=== PATIENT | male | born 1945 | race Caucasian/White ===

== ENCOUNTER → 2018-02-10 | Outpatient (CLI) | payer MEDICARE ==
--- NOTE | 2018-02-10 13:14 | XR ---
EXAMINATION TYPE: XR finger LT DATE OF EXAM: 02/10/2018 COMPARISON: NONE HISTORY: Palpable lump TECHNIQUE: Three views are submitted. FINDINGS: The osseous structures are intact. Along the volar surface of the middle phalanx there is a osseous extension of the from the cortex. The joint spaces are preserved and there is no acute fracture or di slocation. IMPRESSION: 1. Bony extension of the cortex along the volar surface midshaft middle phalanx left third digit. Thi s is nonspecific in appearance by x-ray could BE correlated with MRI or bone scan
== END | disposition home or self-care (01) ==
LOC: RADXRYALE 11:55
PROVIDERS: ATTEND Family Medicine
DX: S60.453A Superficial foreign body of left middle finger, initial encounter (principal)

== ENCOUNTER → 2018-11-02 | Outpatient (CLI) | payer MEDICARE ==
--- NOTE | 2018-11-02 13:20 | XR ---
Limited cervical spine HISTORY: Neck pain, torticollis 3 views of the cervical spine, no comparisons There is multilevel facet arthropathy change. Slight head tilt is noted towards the right. There is m ultilevel spondylosis. Anterolisthesis grade 1 C2-3, retrolisthesis grade 1 C4-5 and C5-6, C6-7 noted . There is loss of disc height at intervertebral levels. Vertebral body height is maintained. Prevert ebral soft tissues are normal. Odontoid view is limited. IMPRESSION: Degenerative disc disease and facet arthropathy.
== END | disposition home or self-care (01) ==
LOC: RADXRYALE 10:23
PROVIDERS: ATTEND Family Medicine
DX: M50.30 Other cervical disc degeneration, unspecified cervical region (principal); M46.92 Unspecified inflammatory spondylopathy, cervical region
CPT/HCPCS: 72040

== ENCOUNTER → 2018-11-14 | Outpatient (CLI) | payer MEDICARE ==
--- NOTE | 2018-11-14 22:09 | MR ---
EXAMINATION TYPE: MR cervical spine wo con DATE OF EXAM: 11/14/2018 COMPARISON: Radiograph 11/02/2018 HISTORY: Cervicalgia / Disc degeneration TECHNIQUE: Multiplanar, multisequence images of the cervical spine were acquired. FINDINGS: There is straightening of the normal upper and mid cervical lordosis with exaggerated lordosis center ed at C6-C7. Cervical vertebral body heights are maintained. No pathologic bone marrow signal abnorma lities. There is multilevel osteophyte formation with disc desiccation and height loss. The cervical spinal cord is of normal signal intensity. Prevertebral soft tissues are normal. Small left vertebral artery flow-void. Level by level is as follows: C2-C3: Small eccentric left posterior disc osteophyte complex impresses upon the ventral thecal sac h owever does not contact the cervical spinal cord. There is no significant spinal canal or neural fora esmer stenosis. C3-C4: Posterior disc osteophyte complex effaces the ventral thecal sac and contacts the cervical spi nal cord, flattening it ventrally. This finding, in conjunction with facet arthropathy and ligamentum flavum thickening, contribute to moderate-severe spinal canal stenosis. Additionally, uncovertebral arthropathy contributes to severe bilateral neural foraminal stenosis. C4-C5: Eccentric left posterior disc osteophyte complex effaces the ventral thecal sac and contacts t he cervical spinal cord, flattening it ventrally. This finding, in conjunction with facet arthropathy and ligamentum flavum thickening, contributing to moderate spinal canal stenosis. Additionally, unco vertebral arthropathy contributes to severe bilateral neural foraminal stenosis. C5-C6: Posterior disc osteophyte complex impresses upon the ventral thecal sac and contacts the ventr al cervical spinal cord, flattening it. This finding, in conjunction with facet arthropathy and ligam entum flavum thickening, contribute to severe spinal canal stenosis. Additionally, uncovertebral arth ropathy contributes to severe bilateral neural foraminal stenosis. C6-C7: Asymmetric left posterior disc osteophyte complex impresses upon the ventral thecal sac, conta cting the ventral cervical spinal cord. This finding, in conjunction with facet arthropathy and ligam entum flavum thickening, contributing to moderate-severe spinal canal stenosis. Additionally, uncover tebral arthropathy contributes to severe bilateral neural foraminal stenosis. C7-T1: No evidence for degenerative disc disease. No disc bulge/herniation or protrusion. No Canal stenosis. Foramina are patent bilaterally. IMPRESSION: 1. Multilevel disc degeneration with associated osteoarthritic changes, detailed above. This is great est in degree at C5-C6 where there is severe spinal canal stenosis. 2. No cervical spinal cord signal abnormalities.
== END | disposition home or self-care (01) ==
LOC: RADMRIMAIN 09:54
PROVIDERS: ATTEND Family Medicine
DX: M48.02 Spinal stenosis, cervical region (principal); M50.322 Other cervical disc degeneration at C5-C6 level; M47.812 Spondylosis without myelopathy or radiculopathy, cervical region
CPT/HCPCS: 72141

== ENCOUNTER → 2019-02-15 | Outpatient (CLI) | payer MEDICARE ==
--- NOTE | 2019-02-15 14:34 | XR ---
EXAMINATION TYPE: XR finger RT DATE OF EXAM: 02/15/2019 COMPARISON: NONE HISTORY: Pain TECHNIQUE: Three views are submitted. FINDINGS: There is a bony density along the volar plate base middle phalanx digit #5. Remaining osseous structu res intact. Narrowing of the PIP and DIP joint noted with no erosive changes. IMPRESSION: 1. Correlate for point tenderness asymmetric middle phalanx fifth digit. Findings suspicious for tiny volar plate fracture.
== END | disposition home or self-care (01) ==
LOC: RADXRYALE 13:50
PROVIDERS: ATTEND Physician Assistant Medical
DX: M79.644 Pain in right finger(s) (principal)

== ENCOUNTER → 2020-05-19 | Outpatient (CLI) | payer MEDICARE ==
--- NOTE | 2020-05-19 12:57 | XR ---
2 view abdomen HISTORY: Right flank pain, right upper quadrant pain and hematuria, low back pain 2 views the abdomen, no comparisons Surgical clips are present in left hemiabdomen. There is an oval calcification superimposed over the region of the proximal right ureter renal pelvis measuring proximally 9 to 10 mm. Multiple calcificat ions are present within the pelvis, postprocedural changes are noted in the right lower quadrant. Deg enerative disc changes are present in the visualized spine. Lung bases are clear. There is mild spina l curvature. IMPRESSION: Possible proximal right ureteral calculus. Indeterminate pelvic calcifications. Postop ch anges. Degenerative disc disease.
== END ==
LOC: RADXRYALE 09:37
PROVIDERS: ATTEND Family Medicine
DX: R93.5 Abnormal findings on diagnostic imaging of other abdominal regions, including retroperitoneum (principal); M47.819 Spondylosis without myelopathy or radiculopathy, site unspecified
CPT/HCPCS: 74019

== ENCOUNTER → 2020-06-23 | Outpatient (CLI) | payer MEDICARE ==
[2020-06-23 09:34] LABS: African American GFR (CKD) >90 (>60 ml/min/1.73 sqM); Anion Gap 3 mmol/L; Blood Urea Nitrogen 19 mg/dL (9-20); Calcium 9.2 mg/dL (8.4-10.2); Carbon Dioxide 32 mmol/L (22-30); Chloride 106 mmol/L (98-107); Glucose 65 mg/dL (74-99); Non-African American GFR(CKD) 89 (>60 ml/min/1.73 sqM); Potassium 4.1 mmol/L (3.5-5.1); Sodium 141 mmol/L (137-145)
[2020-06-23 09:50] LABS: Basophils % (A) 1 %; Eosinophils # (A) 0.1 k/uL (0-0.7); Eosinophils % (A) 1 %; HCT 45.1 % (39.0-53.0); HGB 14.6 gm/dL (13.0-17.5); Lymphocytes # (A) 1.1 k/uL (1.0-4.8); Lymphocytes % (A) 22 %; MCH 28.6 pg (25.0-35.0); MCHC 32.4 g/dL (31.0-37.0); MCV 88.1 fL (80.0-100.0); Mean Platelet Volume 7.3; Monocytes # (A) 0.4 k/uL (0-1.0); Monocytes % (A) 8 %; Neutrophils # (A) 3.2 k/uL (1.3-7.7); Neutrophils % (A) 65 %; Platelet Count 244 k/uL (150-450); RBC 5.12 m/uL (4.30-5.90); RDW 13.3 % (11.5-15.5); WBC 4.9 k/uL (3.8-10.6)
[2020-06-23 10:16] LABS: Appearance,Urine Clear (Clear); Bacteria,Urine Occasional /hpf; Bilirubin,Urine Negative (Negative); Blood,Urine Large (Negative); Color,Urine Yellow; Glucose,Urine (UA) Negative (Negative); Hyaline Casts,Urine 1 /lpf (0-2); Ketones,Urine Negative (Negative); Leukocyte Esterase,Urine Trace (Negative); Mucus,Urine Rare /hpf; Nitrite,Urine Negative (Negative); Protein,Urine 1+ (Negative); RBC,Urine >182 /hpf (0-5); Specific Gravity,Urine 1.021 (1.001-1.035); Squamous Epithelial Cell,Urine <1 /hpf (0-4); Urobilinogen,Urine <2.0 mg/dL (<2.0); WBC,Urine 8 /hpf (0-5)
== END | disposition home or self-care (01) ==
LOC: LABPAT 08:57
PROVIDERS: ATTEND Urology
DX: Z01.818 Encounter for other preprocedural examination (principal); N20.1 Calculus of ureter; N21.9 Calculus of lower urinary tract, unspecified; R31.29 Other microscopic hematuria
CPT/HCPCS: 80048; 81001; 85025; 87086

== ENCOUNTER 2020-06-28 07:06 | Day surgery (SDC) | payer MEDICARE ==
[2020-06-26 08:28] VITALS: BMI 24.3
--- NOTE | 2020-06-27 19:44 | P.GSHP ---
History of Present Illness H&P Date: 06/27/20 75 yo male with gross hematuria due to bladder stones and an 8 mm right renal stone He comes for cystolithotripsy and ureteroscopy with laser lithotripsy.The risks, complications and alternatives have been discussed. - Constitutional Constitutional: Denies chills, Denies fever - EENT Eyes: denies blurred vision, denies pain Ears, nose, mouth and throat: Denies headache, Denies sore throat - Cardiovascular Cardiovascular: Denies chest pain, Denies shortness of breath - Respiratory Respiratory: Denies cough, Denies 7 - Gastrointestinal Gastrointestinal: Denies abdominal pain, Denies diarrhea, Denies nausea, Denies vomiting - Genitourinary (Female) Genitourinary: Denies dysuria, Denies hematuria - Genitourinary (Male) Genitourinary: Denies dysuria, Denies hematuria - Musculoskeletal Musculoskeletal: Denies myalgias - Integumentary Integumentary: Denies pruritus, Denies rash - Neurological Neurological: Denies numbness, Denies weakness - Psychiatric Psychiatric: Denies anxiety, Denies depression - Endocrine Endocrine: Denies fatigue, Denies weight change Past Medical History Additional Past Medical History / Comment(s): KIDNEY STONES History of Any Multi-Drug Resistant Organisms: None Reported Past Surgical History: Hernia Repair, Orthopedic Surgery, Tonsillectomy Additional Past Surgical History / Comment(s): BILAT SHOULDER SX Past Anesthesia/Blood Transfusion Reactions: No Reported Reaction Smoking Status: Never smoker - Past Family History Mother Family Medical History: No Reported History Medications and Allergies Home Medications Medication Instructions Recorded Confirmed Type No Known Home Medications 06/26/20 06/26/20 History Allergies Allergy/AdvReac Type Severity Reaction Status Date / Time aspirin Allergy "shuts my Verified 06/26/20 08:21 lungs down" Surgical - Exam - General well developed, well nourished, no distress - Eyes PERRL - ENT no hearing loss - Respiratory normal expansion, normal respiratory effort - Cardiovascular Rhythm: regular - Abdomen Abdomen: soft, non tender - Genitourinary normal penis with no external lesions, testicles present - Integumentary no growths - Neurologic normal coordination, normal sensation - Musculoskeletal normal gait, normal posture - Psychiatric oriented to time, oriented to person, oriented to place, speech is normal, memory intact Results - Imaging CT scan - abdomen: report reviewed, image reviewed CT scan - pelvis: report reviewed, image reviewed Assessment and Plan Assessment: Impresion: right renal and bladder stones. Plan: cystolithotripsy, right ureteroscopy with laser lithotripsy
[2020-06-28] MEDS ORDERED: LIDOCAINE 1% (10MG/ML) FOR IV START INTRADERMA ONE (08:00)
[2020-06-28] MEDS ORDERED: LACTATED RINGERS 1,000 ML IV ONE ×3 (08:00→10:35)
[2020-06-28] MEDS ORDERED: ONDANSETRON 4 MG/2 ML VIAL ONE (08:10)
[2020-06-28] MEDS ORDERED: DEXAMETHASONE SOD PHOSPHATE 10 MG/ML 1 ML VIAL IV ONE (08:12)
[2020-06-28] MEDS ORDERED: ONDANSETRON 4 MG/2 ML VIAL IVP ONE (08:12)
[2020-06-28] MEDS ORDERED: MIDAZOLAM 2 MG/2 ML VIAL ONE (08:44)
[2020-06-28] MEDS ORDERED: fentaNYL (PF) 50 MCG/ML 2 ML AMP ONE (08:44)
[2020-06-28] MEDS ORDERED: PROPOFOL 10 MG/ML 20 ML VIAL IV ONE (08:44)
[2020-06-28] MEDS ORDERED: LIDOCAINE 1% INJ 10MG/ML (20 ML MDV) ONE (08:44)
[2020-06-28] MEDS ORDERED: ePHEDrine SULFATE/0.9% NACL/PF 50 MG/5 ML SYRINGE IV ONE (08:44)
--- NOTE | 2020-06-28 09:57 | P.OP ---
Date of Procedure: 06/28/20 Preoperative Diagnosis: Bladder stones, right renal stone Postoperative Diagnosis: Same Procedure(s) Performed: Cystoscopy lithotripsy, right ureteroscopy laser lithotripsy Anesthesia: KEITHA Surgeon: Wild Oliva Estimated Blood Loss (ml): 25 Pathology: other (Bladder stone) Condition: stable Disposition: PACU Indications for Procedure: Patient is 75. He has 2 bladder stones, 1 cm and 8 mm. He has a 8 mm right renal stone. He comes for cystoscopy lithotripsy right ureteroscopy laser lithotripsy Description of Procedure: Patient brought to the operative suite. He is given general anesthesia. He's placed lithotomy position with sterile prep and drape under direct vision the 17-Iranian sheath Foroblique lenses introduced in the anterior urethra is normal with prostatic urethra shows trilobar obstruction with a small intravesical middle lobe. The bladder trabeculated. There are 2 stones seen one about a centimeter the other than close to the same size. Under fluoroscopy The right renal stone was seen. With the 270 laser probe the bladder stones are broken into tiny pieces and flushed out of the bladder. I then introduced an 035 wire up the right ureter into the renal pelvis. Over the wires passed a [id number] reentry sheath were the inner sheath is removed. Pass a flexible ureteroscope up to the stone. With the same 270 laser probe I break the stone into dust. There are no fragments large enough to basket. The right ureter is not inflamed. I removed the ureteral sheath. I reintroduced the cystoscope into the bladder to inspect for any more stone fragments. There is a small fragment remaining in the bladder that is irrigated out. The patient's awake and returned recovery room good condition. Tell procedure well. He'll be discharged home upon recovery and found the office one week.
[2020-06-28 10:02] VITALS: TEMP 97.5
[2020-06-28 11:06] VITALS: PULSE 60
[2020-06-28 11:22] VITALS: BP 121/67; RESP 20
--- NOTE | 2020-06-28 15:38 | FL ---
Fluoroscopy HISTORY: Kidney stone 0.52 minutes fluoroscopy time supplied to the referring clinician. 4 intraoperative C-arm images doc ument the procedure. See dictated report from urology.
--- NOTE | 2020-06-28 15:53 | XR ---
KUB HISTORY: Bladder stone, right ureteral stone A KUB submitted on 2 images. Surgical clips are present in the left hemiabdomen. There is calcification at the level of the right L3 transverse process measuring approximately 1 cm. Multiple calcifications are present pelvis. Degen erative disc changes are present visualized spine. No evident bowel obstruction or pneumoperitoneum. Lung bases are clear. Surgical coils are present in the right lower quadrant. IMPRESSION: Ureteral calculus on the right, multiple pelvic calcifications.
== END 2020-06-28 11:35 | disposition home or self-care (01) ==
LOC: OR 07:06
PROVIDERS: ATTEND Urology
DX: N20.0 Calculus of kidney (principal); N21.0 Calculus in bladder; K21.9 Gastro-esophageal reflux disease without esophagitis; Z88.6 Allergy status to analgesic agent; Z72.0 Tobacco use
CPT/HCPCS: 52353; 82365; 74018; J2250; J1100; J2405; J0690; J2001; J3010; J2704

== ENCOUNTER 2024-05-29 17:11 | Emergency (ER) | payer MEDICARE ==
[2024-05-29 17:22] VITALS: RESP 18
--- NOTE | 2024-05-29 17:32 | ED ---
General Adult HPI - General Chief complaint: Fall Stated complaint: Fall, head injury Time Seen by Provider: 05/29/24 17:13 Source: patient, EMS, RN notes reviewed Mode of arrival: EMS Limitations: no limitations - History of Present Illness Initial comments: Patient is a 79-year-old male presenting to the emergency department with concern for fall. Patient was standing on a barrel around 3 to 4 feet high in the barn trying to fix the barn door. Patient slipped and fell and did strike his forehead. Patient has mild neck discomfort. Patient states he felt like his arms and legs were paralyzed for around 10 minutes. Following this patient was able to scoot inside to get help. Patient still feels like he has some weakness however significantly improved. Patient does have some discomfort of his shoulders however has chronic shoulder pain from previous shoulder surgeries. Patient did not lose consciousness. No blood thinners. Unclear l ast tetanus immunization. - Related Data Previous Rx's Medication Instructions Recorded HYDROcodone/APAP 5-325MG [[place] 1 tab PO Q4HR PRN #10 tab 06/28/20 5-325] Allergies Allergy/AdvReac Type Severity Reaction Status Date / Time aspirin Allergy "shuts my Verified 05/29/24 17:22 lungs down" Review of Systems ROS Statement: Those systems with pertinent positive or pertinent negative responses have been documented in the HPI. ROS Other: All systems not noted in ROS Statement are negative. Constitutional: Denies: fever Eyes: Denies: eye pain ENT: Denies: ear pain Respiratory: Denies: dyspnea Cardiovascular: Denies: chest pain Endocrine: Denies: fatigue Gastrointestinal: Denies: abdominal pain Genitourinary: Denies: dysuria Musculoskeletal: Reports: as per HPI. Denies: back pain Neurological: Reports: as per HPI, weakness. Denies: headache Past Medical History History of Any Multi-Drug Resistant Organisms: None Reported Past Psychological History: No Psychological Hx Reported General Exam Limitations: no limitations General appearance: alert, in no apparent distress Head exam: Present: other (Forehead laceration) Eye exam: Present: normal appearance, PERRL, EOMI ENT exam: Present: normal oropharynx Neck exam: Present: tenderness (Mild diffuse tenderness. Patient does have c- collar in place already prior to evaluation) Respiratory exam: Present: normal lung sounds bilaterally Cardiovascular Exam: Present: regular rate, normal rhythm Expanded Peripheral pulses: 2+: Radial (R), Radial (L) GI/Abdominal exam: Present: soft. Absent: tenderness Extremities exam: Present: normal inspection, full ROM. Absent: tenderness Back exam: Present: normal inspection. 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 Saleh. MRI is not available and patient will need to be transferred. Patient reevaluated and updated. EKG Findings - EKG Results: EKG: interpreted by ERMD (Right axis.), sinus rhythm, normal QRS, normal ST/T EKG shows: bradycardia Procedures - Laceration Laceration #1 Consent Obtained: verbal consent Indication: laceration Site: face Description: stellate Depth: simple, single layer Pre-repair: wound explored, irrigated extensively Type of Sutures: other (Closed with tissue adhesive) Patient Tolerated Procedure: well, no complications Medical Decision Making - Medical Decision Making Was pt. sent in by a medical professional or institution (, [facility], PEDIATRIC SOCIAL WORKER, urgent care, hospital, or group home...) When possible be specific @ -No Did you speak to anyone other than the patient for history (EMS, parent, family, police, friend...)? What history was obtained from this source @ -No Did you review nursing and triage notes (agree or disagree)? Why? @ -I reviewed and agree with nursing and triage notes Were old charts reviewed (outside hosp., previous admission, EMS record, old EKG, old radiological studies, urgent care reports/EKG's, group home records)? Report findings @ -No old charts were reviewed Differential Diagnosis (chest pain, altered mental status, abdominal pain women, abdominal pain men, vaginal bleeding, weakness, fever, dyspnea, syncope, headache, dizziness, GI bleed, back pain, seizure, CVA, palpatations, mental health, musculoskeletal)? @ -Differential Weakness: Hypoglycemia, shock, sepsis, hyponatremia, anemia, infection, KS, ETOH, adverse medicine reaction, overdose, stroke, this is not meant to be an all-inclusive list. EKG interpreted by me (3pts min.). @ -As above X-rays interpreted by me (1pt min.). @ -Chest and pelvis x-ray did not reveal acute abnormality CT interpreted by me (1pt min.). @ -CT scan brain and cervical spine without acute abnormality U/S interpreted by me (1pt. min.). @ -None done What testing was considered but not performed or refused? (CT, X-rays, U/S, labs)? Why? @ -None What meds were considered but not given or refused? Why? @ -None Did you discuss the management of the patient with other professionals (professionals i.e. , PA, PEDIATRIC SOCIAL WORKER, lab, RT, psych nurse, manager social work, layout mechanic, teacher, community service patrol officer, case management associate)? Give summary @ -See above Case also discussed with Dr. Sousa at [facility] who will accept transfer. Was smoking cessation discussed for >3mins.? @ -No Was critical care preformed (if so, how long)? @ -39 minutes critical care time Were there social determinants of health that impacted care today? How? (Homelessness, low income, unemployed, alcoholism, drug addiction, transportation, low edu. Level, literacy, decrease access to med. care, fci, rehab)? @ -No Was there de-escalation of care discussed even if they declined (Discuss DNR or withdrawal of care, Hospice)? DNR status @ -No What co-morbidities impacted this encounter? (DM, HTN, Smoking, COPD, CAD, Cancer, CVA, ARF, Chemo, Hep., AIDS, mental health diagnosis, sleep apnea, morbid obesity)? @ -None Was patient admitted / discharged? Hospital course, mention meds given and route, prescriptions, significant lab abnormalities, going to OR and other pertinent info. @ -Patient presents with fall. Patient had bilateral upper and lower extremity weakness lasting around 10 minutes. Patient did have improvement of that. 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 No leg weakness. CT scan unremarkable. Concern for central cord injury. Patient will need to be transferred for spinal cord care Undiagnosed new problem with uncertain prognosis? @ -No Drug Therapy requiring intensive monitoring for toxicity (Heparin, Nitro, Insulin, Cardizem)? @ -No Were any procedures done? @ -See above] Diagnosis/symptom? @ -Central cord injury Acute, or Chronic, or Acute on Chronic? @ -Acute Uncomplicated (without systemic symptoms) or Complicated (systemic symptoms)? @ -Default Side effects of treatment? @ -No Exacerbation, Progression, or Severe Exacerbation? @ -No Poses a threat to life or bodily function? How? (Chest pain, USA, KS, pneumonia, PE, COPD, DKA, ARF, appy, cholecystitis, CVA, Diverticulitis, Homicidal, Suicidal, threat to staff... and all critical care pts) @ -Threat to neurological function - Lab Data Result diagrams: 05/29/24 17:50 05/29/24 17:50 Lab Results 05/29/24 05/29/24 05/29/24 Range/Units 17:50 17:50 17:50 WBC 11.6 H (3.8-10.6) k/uL RBC 4.57 (4.30-5.90) m/uL Hgb 13.9 (13.0-17.5) gm/dL Hct 41.6 (39.0-53.0) % MCV 91.1 (80.0-100.0) fL MCH 30.4 (25.0-35.0) pg MCHC 33.4 (31.0-37.0) g/dL RDW 13.2 (11.5-15.5) % Plt Count 180 (150-450) k/uL MPV 7.9 Neutrophils % 89 % Lymphocytes % 5 % Monocytes % 4 % Eosinophils % 1 % Basophils % 0 % Neutrophils # 10.3 H (1.3-7.7) k/uL Lymphocytes # 0.6 L (1.0-4.8) k/uL Monocytes # 0.5 (0-1.0) k/uL Eosinophils # 0.1 (0-0.7) k/uL Basophils # 0.0 (0-0.2) k/uL Sodium 135 L (137-145) mmol/L Potassium 4.4 (3.5-5.1) mmol/L Chloride 104 (98-107) mmol/L Carbon Dioxide 24 (22-30) mmol/L Anion Gap 7 mmol/L BUN 30 H (9-20) mg/dL Creatinine 0.85 (0.66-1.25) mg/dL Est GFR (CKD-EPI)AfAm >90 (>60 ml/min/1.73 sqM) Est GFR (CKD-EPI)NonAf 84 (>60 ml/min/1.73 sqM) Glucose 121 H (74-99) mg/dL POC Glucose (mg/dL) (70-110) mg/dL POC Glu Pillow Agent ID Plasma Lactic Acid Varun 1.1 (0.7-2.0) mmol/L Calcium 8.6 (8.4-10.2) mg/dL Total Bilirubin 0.7 (0.2-1.3) mg/dL AST 35 (17-59) U/L ALT 29 (4-49) U/L Alkaline Phosphatase 57 (38-126) U/L Total Protein 6.4 (6.3-8.2) g/dL Albumin 3.8 (3.5-5.0) g/dL Serum Alcohol <10 mg/dL Blood Type Recheck Bld Type Recheck Status Spec Expiration Date 05/29/24 05/29/24 Range/Units 17:50 18:12 WBC (3.8-10.6) k/uL RBC (4.30-5.90) m/uL Hgb (13.0-17.5) gm/dL Hct (39.0-53.0) % MCV (80.0-100.0) fL MCH (25.0-35.0) pg MCHC (31.0-37.0) g/dL RDW (11.5-15.5) % Plt Count (150-450) k/uL MPV Neutrophils % % Lymphocytes % % Monocytes % % Eosinophils % % Basophils % % Neutrophils # (1.3-7.7) k/uL Lymphocytes # (1.0-4.8) k/uL Monocytes # (0-1.0) k/uL Eosinophils # (0-0.7) k/uL Basophils # (0-0.2) k/uL Sodium (137-145) mmol/L Potassium (3.5-5.1) mmol/L Chloride (98-107) mmol/L Carbon Dioxide (22-30) mmol/L Anion Gap mmol/L BUN (9-20) mg/dL Creatinine (0.66-1.25) mg/dL Est GFR (CKD-EPI)AfAm (>60 ml/min/1.73 sqM) Est GFR (CKD-EPI)NonAf (>60 ml/min/1.73 sqM) Glucose (74-99) mg/dL POC Glucose (mg/dL) 97 (70-110) mg/dL POC Glu Pillow Agent ID [place] Reanna Plasma Lactic Acid Varun (0.7-2.0) mmol/L Calcium (8.4-10.2) mg/dL Total Bilirubin (0.2-1.3) mg/dL AST (17-59) U/L ALT (4-49) U/L Alkaline Phosphatase (38-126) U/L Total Protein (6.3-8.2) g/dL Albumin (3.5-5.0) g/dL Serum Alcohol mg/dL Blood Type Recheck No Previous Record Bld Type Recheck Status CABO Indicated Spec Expiration Date 06/01/2024 - 235 Critical Care Time Critical Care Time: Yes Disposition 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 Specs Out of Hospital Transfer - Requested Specifics: Other Emergency Center
[2024-05-29] MEDS: HYDROmorphone 1 MG/ML 1 ML SYRINGE IVP STA (17:39)
--- NOTE | 2024-05-29 17:44 | CT ---
EXAMINATION TYPE: CT brain cspine wo con DATE OF EXAM: 05/29/2024 COMPARISON: None CLINICAL INDICATION: Male, 79 years old with history of trauma, b/l hand weakness; PHH, Priority 1 tr auma. Fell off of a barrel and has numbness and tingling and both hands. No LOC. TECHNIQUE: CT scan of the head and cervical spine are performed without contrast. CT DLP: 1994.[address] CTDI: mGy Automated exposure control for dose reduction was used. FINDINGS: There is no acute intracranial hemorrhage, mass effect, or midline shift identified. The ventricles and sulci are within normal limits in size. There is nasal bone irregularity. Correlate clinically. C hanges of extensive polyposis and/or chronic paranasal sinusitis. Cervical spine is visualized in its entirety from C1 through upper thoracic levels and demonstrates s atisfactory alignment without evidence of acute fracture or dislocation. Prevertebral soft tissue ap pears within normal limits. The C1-C2 articulation is unremarkable. IMPRESSION: 1. There is no acute fracture or dislocation evident in the cervical spine. 2. No acute intracranial hemorrhage, mass effect, or midline shift is seen. [facility], , 05/29/2024 5:42 PM
--- NOTE | 2024-05-29 17:45 | XR ---
EXAMINATION TYPE: XR pelvis AP view DATE OF EXAM: 05/29/2024 5:40 PM COMPARISON: None. CLINICAL INDICATION: Male, 79 years old with history of Trauma, pain TECHNIQUE: XR pelvis AP view views were obtained FINDINGS: No evidence for fracture, dislocation or bony lesion. Joint spaces are well-preserved. S I joints appear symmetric. IMPRESSION: No acute fracture or dislocation seen. [facility], , 05/29/2024 5:43 PM
--- NOTE | 2024-05-29 17:47 | XR ---
EXAMINATION TYPE: XR chest 1V portable DATE OF EXAM: 05/29/2024 5:40 PM COMPARISON: None. CLINICAL INDICATION: Male, 79 years old with history of trauma, TECHNIQUE: XR chest 1V portable views of the chest are obtained. FINDINGS: Demonstrated are scattered senescent parenchymal change. There is no evidence for focal infiltrate. The heart is stable. Hilar and mediastinal structures are within normal limits. Degenerative changes are seen of the dorsal spine. IMPRESSION: 1. Chronic changes without evidence for acute pulmonary disease. [facility], , 05/29/2024 5:45 PM
[2024-05-29] MEDS: DIPH,PERTUS(ACELL)TETVAC-LF 0.5 ML VIAL IM ONE (17:51)
[2024-05-29] MEDS: TOPICAL SKIN ADHESIVE 1 EACH AMP TOPICAL ONE (17:51)
--- NOTE | 2024-05-29 18:07 | P.GSHP ---
History of Present Illness H&P Date: 05/29/24 Patient is a 79-year-old male presenting to the emergency department with concern for fall. Level 1 Trauma activated. Patient was standing on a barrel around 3 to 4 feet high in the barn trying to fix the barn door. Patient slipped and fell and did strike his forehead. Patient has mild neck discomfort. Patient states he felt like his arms and legs were paralyzed for around 10 minutes. Following this patient was able to scoot inside to get help. Patient still feels like he has some weakness however significantly improved. Patient does have some discomfort of his shoulders however has chronic shoulder pain from previous shoulder surgeries. Patient did not lose consciousness. No blood thinners. Unclear last tetanus immunization. Review of Systems ROS Statement: Those systems with pertinent positive or pertinent negative responses have been documented in the HPI. ROS Other: All systems not noted in ROS Statement are negative. Constitutional: Denies: fever Eyes: Denies: eye pain ENT: Denies: ear pain Respiratory: Denies: dyspnea Cardiovascular: Denies: chest pain Endocrine: Denies: fatigue Gastrointestinal: Denies: abdominal pain Genitourinary: Denies: dysuria Musculoskeletal: Reports: as per HPI. Denies: back pain Neurological: Reports: as per HPI, weakness. Denies: headache Past Medical History History of Any Multi-Drug Resistant Organisms: None Reported Past Psychological History: No Psychological Hx Reported General Exam Limitations: no limitations General appearance: alert, in no apparent distress Head exam: Present: other (Forehead laceration) Eye exam: Present: normal appearance, PERRL, EOMI ENT exam: Present: normal oropharynx Neck exam: Present: tenderness (Mild diffuse tenderness. Patient does have c-collar in place already prior to evaluation) Respiratory exam: Present: normal lung sounds bilaterally Cardiovascular Exam: Present: regular rate, normal rhythm Expanded Peripheral pulses: 2+: Radial (R), Radial (L) GI/Abdominal exam: Present: soft. Absent: tenderness Extremities exam: Present: normal inspection, full ROM. Absent: tenderness Back exam: Present: normal inspection. 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), RLE: 5, LLE: 5 Eye Response: (4) open spontaneously Motor Response: (6) obeys commands Verbal Response: (5) oriented Psychiatric exam: Present: normal affect, normal mood Skin exam: Present: abrasion (Bridge of the nose without nasal tenderness), other (Laceration to the forehead) 79 year old male s/p fall with forehead laceration and B/L UE weakness 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 -CT Head and C-Spine Pending -Patient will require transfer for evaluation by Neurosurgery -Follow up Labs -Forehead Lac repair by ER Physician -Case d/w ER physician Nathaniel Naik [facility] [phone] Past Medical History History of Any Multi-Drug Resistant Organisms: None Reported Past Psychological History: No Psychological Hx Reported Medications and Allergies Home Medications Medication Instructions Recorded Confirmed Type HYDROcodone/APAP 5-325MG [[place] 1 tab PO Q4HR PRN #10 tab 06/28/20 Rx 5-325] Allergies Allergy/AdvReac Type Severity Reaction Status Date / Time aspirin Allergy "shuts my Verified 05/29/24 17:22 lungs down" Surgical - Exam Vital Signs Temp Pulse Resp BP Pulse Ox 98.3 F 52 L 18 119/72 98 05/29/24 17:13 05/29/24 17:13 05/29/24 17:13 05/29/24 17:13 05/29/24 17:13
[2024-05-29 18:09] LABS: Basophils % (A) 0 %; Eosinophils # (A) 0.1 k/uL (0-0.7); Eosinophils % (A) 1 %; HCT 41.6 % (39.0-53.0); HGB 13.9 gm/dL (13.0-17.5); Lymphocytes # (A) 0.6 k/uL (1.0-4.8); Lymphocytes % (A) 5 %; MCH 30.4 pg (25.0-35.0); MCHC 33.4 g/dL (31.0-37.0); MCV 91.1 fL (80.0-100.0); Mean Platelet Volume 7.9; Monocytes # (A) 0.5 k/uL (0-1.0); Monocytes % (A) 4 %; Neutrophils # (A) 10.3 k/uL (1.3-7.7); Neutrophils % (A) 89 %; Platelet Count 180 k/uL (150-450); RBC 4.57 m/uL (4.30-5.90); RDW 13.2 % (11.5-15.5); WBC 11.6 k/uL (3.8-10.6)
[2024-05-29 18:13] LABS: Glucose,Whole Blood 97 mg/dL (70-110)
[2024-05-29 18:17] LABS: ALT 29 U/L (4-49); AST 35 U/L (17-59); African American GFR (CKD) >90 (>60 ml/min/1.73 sqM); Albumin 3.8 g/dL (3.5-5.0); Alcohol <10 mg/dL; Alkaline Phosphatase 57 U/L (38-126); Anion Gap 7 mmol/L; Blood Urea Nitrogen 30 mg/dL (9-20); Calcium 8.6 mg/dL (8.4-10.2); Carbon Dioxide 24 mmol/L (22-30); Chloride 104 mmol/L (98-107); Glucose 121 mg/dL (74-99); Non-African American GFR(CKD) 84 (>60 ml/min/1.73 sqM); Potassium 4.4 mmol/L (3.5-5.1); Sodium 135 mmol/L (137-145); Total Bilirubin 0.7 mg/dL (0.2-1.3); Total Protein 6.4 g/dL (6.3-8.2)
[2024-05-29 18:22] LABS: INR 0.9 (<1.2); Partial Thromboplastin Time 21.9 sec (22.0-30.0); Prothrombin Time 10.6 sec (10.0-12.5)
[2024-05-29] MEDS: HYDROmorphone 0.5 MG/0.5 ML SYRINGE IVP STA (18:43)
[2024-05-29 19:28] VITALS: BP 124/79; PULSE 70; TEMP 98.1
== END 2024-05-29 18:24 | disposition other institution (70) ==
LOC: EC 17:11
DX: S14.129A Central cord syndrome at unspecified level of cervical spinal cord, initial encounter (principal); S01.81XA Laceration without foreign body of other part of head, initial encounter; Z23 Encounter for immunization; W01.198A Fall on same level from slipping, tripping and stumbling with subsequent striking against other object, initial encounter
CPT/HCPCS: 86900; 86901; 80053; 83605; 85025; 85610; 85730; 86850; 80320; 72170; 71045; 72125; 70450; 90715; 99291; 96374; 96376; 90471; 12011; J1171 ×2; 36415